=== PATIENT | male | born 1990 | race Caucasian/White ===

== ENCOUNTER 2016-12-06 20:01 | Emergency (ER) | payer BC ==
[~2016-12-06] VITALS: Ht 170.2 cm; Wt 80.4 kg
[~2016-12-06 20:01] MED LIST: KEFLEX500 MG PO
[2016-12-06 20:28] VITALS: BP 134/78
== END 2016-12-06 22:40 | disposition left against medical advice (07) ==
LOC: EME 20:01
DX: R51 Headache (principal); H53.149 Visual discomfort, unspecified; Z53.21 Procedure and treatment not carried out due to patient leaving prior to being seen by health care provider